=== PATIENT | male | born 1965 | race Caucasian/White ===

== ENCOUNTER → 2022-02-24 | Day surgery (SDC) | payer OTHER ==
[~2022-02-24] VITALS: Ht 195.6 cm; Wt 102.0 kg
[~2022-02-24] MED LIST: LEVOTHROID 0.0.15 MG PO
== END | disposition home or self-care (01) ==
LOC: FAS 10:08
DX: K29.80 Duodenitis without bleeding (principal); K22.2 Esophageal obstruction; K29.60 Other gastritis without bleeding; Z20.822 Contact with and (suspected) exposure to COVID-19
CPT/HCPCS: J2250; J2704; J7120; U0002